=== PATIENT | male | born 1990 | race American Indian/Alaskan Native ===

== ENCOUNTER → 2018-07-24 | Outpatient (CLI) | payer OTHER ==
--- NOTE | 2018-07-24 13:22 | RADIOLOGY IMAGING REPORT ---
FACILITY: [facility] - [place] PATIENT NAME: Edu Anaya : 1990 MR: [id number] V: [id number] EXAM DATE: ORDERING PHYSICIAN: KATIE ODVE TECHNOLOGIST: Location: [facility] [place] Patient: Edu Anaya : 1990 Visit/Account:[id number] Date of Sevice: 07/24/2018 Exam type: CHEST PA AND LAT History: Shortness of breath, cough, positive TB test Comparison: None. Findings: The lungs are free of acute effusions, infiltrates or edema. No cavitary lesions are seen. The card iac silhouette is normal in size. The trachea is in midline. Visualized bones are unremarkable IMPRESSION: 1. No acute pulmonary process is seen. Specifically no chest radiographic evidence of active tuberc ulosis Report Dictated By: Shakila May MD at 07/24/2018 1:16 PM Report E-Signed By: Shakila May MD at 07/24/2018 1:17 PM WSN:[email or web address]
== END ==
LOC: RAD 10:17
PROVIDERS: ATTEND Pediatrics Adolescent Medicine
DX: R76.11 Nonspecific reaction to tuberculin skin test without active tuberculosis (principal)
CPT/HCPCS: 71046